=== PATIENT | female | born 1950 | race Caucasian/White ===

== ENCOUNTER 2018-06-07 08:08 | Emergency (ER) | payer OTHER, MEDICARE ==
[~2018-06-07] VITALS: Ht 160 cm; Wt 100.0 kg
[~2018-06-07 08:08] MED LIST: ASPEC81 PO; CZR50 PO; L-LYSINE; MULT-190 PO; MULT-506 PO
[2018-06-07 08:17] VITALS: TEMP 36.6; Ht 160 cm; Wt 100.0 kg
[2018-06-07] MEDS ORDERED: ASPI-461 PO (08:58)
[2018-06-07] MEDS ORDERED: CINN500T PO (09:02)
[2018-06-07] MEDS ORDERED: MAGN1TAB41 PO (09:02)
[2018-06-07] MEDS ORDERED: LOSA50TA6 PO (09:02)
[2018-06-07] MEDS ORDERED: BILB1CAP2 PO (09:02)
[2018-06-07] MEDS ORDERED: POTA1TAB PO (09:02)
[2018-06-07] MEDS ORDERED: GARL10007 PO (09:02)
[2018-06-07] MEDS ORDERED: CALC-393 PO (09:02)
[2018-06-07] MEDS ORDERED: LYSI500T4 PO (09:02)
[2018-06-07] MEDS ORDERED: LEVO75TA PO (09:02)
[2018-06-07] MEDS ORDERED: OMEG5CAP PO (09:02)
[2018-06-07] MEDS ORDERED: TRAM-10 PO (10:40)
--- NOTE | 2018-06-07 10:43 | DIAGNOSTIC IMAGING REPORT ---
LUMBAR SPINE 5 VIEWS CLINICAL HISTORY: Fall with low back pain. FINDINGS: Five views of lumbar spine are obtained. No prior studies are available for comparison at the time of dictation. The skeletal structures are osteopenic. There is no radiographic evidence of fracture or malalignment involving the lumbar spine. Vertebral body height and alignment are maintained. There is mild lumbar dextrocurvature centered at L3. The transverse and spinous processes appear intact. Anterior and lateral marginal osteophytes are seen throughout. Advanced facet arthropathy is seen in the mid to lower lumbar region. There is moderate disc space narrowing seen at all lumbar levels. The visualized sacrum and bony pelvis are intact as imaged. Sclerotic change is noted in the sacroiliac joints and symphysis pubis. No bowel obstruction is identified. There is moderate colonic fecal retention. A bone island is noted in the left acetabulum. IMPRESSION: 1. There is no radiographic evidence of fracture or malalignment involving the lumbar spine. 2. Osteopenia with advanced lumbosacral spondylosis and scoliosis as above. Dictated: 06/07/2018 9:46 AM Transcribed: 06/07/2018 10:43 AM [email or web address] Electronically signed by: Hola Carranza M.D. 06/07/2018 11:11 AM Dictated Date/Time: 06/07/2018 9:46 AM
[2018-06-07 11:50] VITALS: BP 154/87; PULSE 83; O2SAT 97
--- NOTE | 2018-06-10 22:57 | EMERGENCY ROOM VISIT NOTE ---
ED Visit Note First contact with patient: 08:23 Chief Complaint: Back pain. History of Present Illness: Ms. Tucker is a 67-year-old white female who is brought into the ED via ambulance complaining of right sided lumbar back pain. Patient reports that she has had right sided sciatica for over 30 years. She reports last night approximately 10 hours ago her pain started increasing in intensity without any precipitating direct or repetitive trauma. She reports last night she describes her pain as a spasm-like sensation. She rated her discomfort 10/10. Her pain was radiating into the buttocks but not the leg. Her pain worsens with all movement of the lumbar spine. She did not identify any alleviating factors related to the pain. She did take her prescribed tramadol without relief of her discomfort. Since that time her pain has been constant and she really had difficulty sleeping through the night. This morning she activated EMS to be brought into the hospital for further evaluation and care. During transport patient received 100 mcg of fentanyl IV, 1 mg of Ativan IV and 4 mg of Zofran IV for her symptoms. Currently she continues to describe her sensation as a spasm. She now rates her discomfort 2/10. The pain is still radiating into the buttocks but not down the leg. She has not identified any current aggravating or alleviating factors related to the pain. She denies any associated symptoms including recent fevers, chills, sweats, abdominal pain, nausea, vomiting, constipation, rectal bleeding, black/tarry stools, urinary symptoms, hematuria, genital paresthesias, bowel and bladder dysfunction, lower extremity weakness/numbness/ tingling. Review of Systems: As noted above in history of present illness. 8 body systems were reviewed and found to be negative as noted above. Past Medical History: As previously noted and hypertension and hypothyroidism. Current Medications: Medications Dose Route/Sig Max Daily Dose Days Date Category Dose Instructions Ultram (Tramadol HCl) 50 Mg Tab 1 Tab PO Q6 PRN 3 06/07/18 Rx For Initial Treatment Cinnamon 500 Mg Tab 1,000 Mg PO BID 06/07/18 Reported Fish Oil 1200 mg ([place]-3 Fatty Acids) 1 Cap Cap 1,200 Mg PO 3XWK 06/07/18 Reported Calcium (Calcium Carbonate) 600 Mg Tab 600 Mg PO DAILY 06/07/18 Reported Potassium Gluconate 595 Mg Tab 595 Mg PO DAILY 06/07/18 Reported Synthroid (Levothyroxine Sodium) 75 Mcg Tab 75 Mcg PO DAILY 06/07/18 Reported Bilberry (Bilberry (Vaccinium Myrtillus)) 1,000 Mg Cap 1,000 Mg PO BID 06/07/18 Reported Garlic 1,000 Mg Cap 1,000 Mg PO DAILY 06/07/18 Reported Magnesium (Magnesium Oxide) 400 Mg Tab 400 Mg PO 4XWK 06/07/18 Reported L-Lysine (Lysine) 500 Mg Tab 500 Mg PO DAILY 06/07/18 Reported Cozaar (Losartan Potassium) 50 Mg Tab 50 Mg PO DAILY 06/07/18 Reported Aspirin 81 Mg Tab 81 Mg PO DAILY 06/07/18 Reported Ocuvite Preservision (Multivitamins/Minerals) 1 Tab Tab 1 Tab PO DAILY 02/03/08 Reported Multivitamin (Multivitamins) Tab 1 Tab PO DAILY 02/03/08 Reported Allergies to Medications: Penicillin, morphine. Social History: Patient is not employed; she feels safe in her home environment ; she denies tobacco use. Physical Examination: Vital Signs: Date Time Temp Pulse Resp B/P (MAP) Pulse Ox O2 Delivery O2 Flow Rate FiO2 06/07/18 11:50 83 18 154/87 97 06/07/18 11:23 81 18 163/83 98 Room Air 06/07/18 09:23 88 18 159/78 97 Room Air 06/07/18 08:31 93 20 156/83 97 Room Air 06/07/18 08:17 36.6 93 20 212/114 93 Room Air 204/114 GENERAL: 67-year-old female in mild to moderate distress due to pain, nontoxic- appearing, afebrile and hemodynamically stable. NEUROLOGICAL: Awake, alert and oriented to person, place and time. Answering questions appropriately and following commands. Good hand eye coordination. No focal motor sensory deficits. SKIN: Warm, dry and pink. No soft tissue eruptions or trauma noted. HEENT: Atraumatic and normocephalic. BACK: No tenderness over the bony thoracic or lumbar spines. Moderate tenderness over the right sacroiliac joint area without bony deformity, bony crepitus, swelling or ecchymosis. There is also minimal tenderness just lateral to the lumbar spine in the para musculature without spasm. Mild decreased range of motion of the lumbar spine due to pain predominantly in flexion. Negative straight leg raise test. No CVA tenderness. THORAX: Lungs sounds are clear to auscultation and equal bilaterally with symmetrical chest wall. HEART: Regular rate and rhythm. No gallops, rubs or murmurs are appreciated. ABDOMEN: Soft and nontender. Positive bowel sounds in all quadrants. No guarding, rigidity or organomegaly. EXTREMITIES: Moves all extremities well on command and with purpose. All distal neurovascular statuses are intact and equal bilaterally. Lower Extremities: No gross bony deformity. No shortening or malrotation. No tenderness in the hips, knees or ankles. 4/5 muscle strength in all movements of the hips, knees and ankles against resistance. 2+ patellar and Achilles deep tendon reflexes intact and equal bilaterally. No calf tenderness or cords. ED Course: Patient is assessed as noted above. Patient's medication list was reviewed. Lumbar Spine X-Rays: Were read by myself and the radiologist showing no evidence of fracture or malignancy. Radiologist does note osteopenia with advanced lumbar sacral spondylosis and scoliosis. Patient was educated about tonight's findings and instructed on her treatment plan; she verbalized understanding and agreement with this plan. Clinical Impression: Lumbar back pain with right-sided radiculopathy. Disposition: Patient discharged home in stable condition; prior to departure she was reassessed and subjectively reported she was feeling the same from being brought in and rated her overall discomfort 2/10. Plan: She was placed on a sliding pain medication scale of ibuprofen, acetaminophen and Ultram. Other comfort measures including ice and proper lifting and moving techniques were discussed with the patient. Patient was encouraged to follow-up with her PCP for recheck if no better in 3- 4 days. Patient was encouraged return the ED for worsening/uncontrolled pain, fevers, numbness/tingling in the rectal or genital areas, bowel and bladder dysfunction , lower extremity weakness/numbness/tingling or any new/concerning symptoms.
== END 2018-06-07 11:50 | disposition home or self-care (01) ==
LOC: EDBD 08:08 → C.EDA 08:11
DX: M54.41 Lumbago with sciatica, right side (principal); G89.29 Other chronic pain; I10 Essential (primary) hypertension; E03.9 Hypothyroidism, unspecified; Z79.82 Long term (current) use of aspirin; Z79.899 Other long term (current) drug therapy; Z88.0 Allergy status to penicillin; Z88.6 Allergy status to analgesic agent

== ENCOUNTER 2020-05-09 06:15 | Observation (INO) ==
[2020-05-09] MEDS ORDERED: ADENOSINE IV SOLN 3 MG/ML 2 ML VIAL IV ONE (06:36)
[2020-05-09 06:39] LABS: Basophils # (auto) 0.04 K/uL (0-0.2); Basophils % (auto) 0.3 %; Eosinophils # (auto) 0.41 K/uL (0-0.5); Eosinophils % (auto) 2.9 %; Hematocrit (blood only) 46.2 % (37-47); Immature Granulocytes # (auto) 0.11 K/uL (0.00-0.02); Immature Granulocytes % (auto) 0.8 %; Lymphocytes # (auto) 2.28 K/uL (1.2-3.4); Lymphocytes % (auto) 16.3 %; Mean Corpuscular Hemoglobin 29.5 pg (25-34); Mean Corpuscular Hgb Conc 32.5 g/dL (32-36); Mean Corpuscular Volume 90.9 fL (80-100); Mean Platelet Volume 9.6 fL (7.4-10.4); Monocytes # (auto) 1.17 K/uL (0.11-0.59); Monocytes % (auto) 8.4 %; Neutrophils # (auto) 9.98 K/uL (1.4-6.5); Neutrophils % (auto) 71.3 %; Platelet Count 279 K/uL (130-400); RDW Coefficient of Variation 14.9 % (11.5-14.5); RDW Standard Deviation 49.9 fL (36.4-46.3); Red Blood Count 5.08 M/uL (4.2-5.4); White Blood Count 13.99 K/uL (4.8-10.8)
[2020-05-09] MEDS ORDERED: ADENOSINE IV SOLN 3 MG/ML 2 ML VIAL IV STA (06:46)
[2020-05-09 06:56] LABS: Albumin Level 3.1 gm/dl (3.4-5.0); BUN Creatinine Ratio 15.2 (10-20); Blood Urea Nitrogen 13 mg/dl (7-18); Calcium 9.3 mg/dl (8.5-10.1); Carbon Dioxide 24 mmol/L (21-32); Chloride 108 mmol/L (98-107); Creatinine Clr Calc Pharmacy 72.8 ml/min; Est GFR (African American) 81.6; Est GFR (Non-African American) 70.4; Glucose 151 mg/dl (70-99); Magnesium 2.1 mg/dl (1.8-2.4); Potassium 3.7 mmol/L (3.5-5.1); Sodium 139 mmol/L (136-145)
--- NOTE | 2020-05-09 07:02 | Emergency Department Note ---
History of Present Illness General Chief Complaint: Tachycardia Time Seen by Provider: 05/09/20 06:34 History of Present Illness Provider Complaint: + rapid heart beat and + "heart racing" Time: 04:00 Duration: + Constant Severity: severe Maximum Pain Intensity: 3 Current Pain Intensity: 1 Context: + occurred during rest Arrhythmia history: + other (no arrythmia history) Associated symptoms: + chest pain and + diaphoresis; no shortness of breath Home Medications Home Medications Medication Instructions Recorded Confirmed Type C,E,zinc,copper [id number] 1 cap PO QAM 02/25/20 05/09/20 History [Ocuvite Adult 50 Plus] bilberry 100 mg PO BID 02/25/20 05/09/20 History calcium carbonate [Calcium 600] 600 mg PO QDL 02/25/20 05/09/20 History cinnamon bark [Cinnamon] 1,000 mg PO BID 02/25/20 05/09/20 History fish,bora,flax oils-om3,[id number] 1 cap PO TUTHSA 02/25/20 05/09/20 History [[place] 3-6-9] garlic 1,000 mg PO QDL 02/25/20 05/09/20 History levothyroxine 75 mcg PO QAM 02/25/20 05/09/20 History losartan 50 mg PO QAM 02/25/20 05/09/20 History lysine 500 mg PO QAM 02/25/20 05/09/20 History multivitamin 1 tab PO QDL 02/25/20 05/09/20 History potassium gluconate 595 mg PO QAM 02/25/20 05/09/20 History azathioprine 50 mg tablet 100 mg PO DAILY #60 tab 05/06/20 05/09/20 Rx aspirin 325 mg PO QAM 05/09/20 05/09/20 History aspirin 650 mg PO UD 05/09/20 05/09/20 History furosemide 40 mg PO DAILY PRN 05/09/20 05/09/20 History magnesium citrate 100 mg PO BID 05/09/20 05/09/20 History prednisone 10 mg PO Q2D 05/09/20 05/09/20 History Allergies Allergy/AdvReac Type Severity Reaction Status Date / Time Penicillins Allergy Mild RASH Verified 05/09/20 07:18 morphine Allergy Unknown . Verified 05/09/20 07:18 tramadol [From Ultram] Allergy Rash Verified 05/09/20 07:18 Past Med/Surg History Medical History Bullous pemphigoid Hypertension (Acute) Hypothyroidism (Acute) Obesity (Acute) Surgical History History of dilation and curettage History of vaginal hysterectomy Family History Father Myocardial infarction Diabetes Mother Breast cancer Congestive heart failure Social History Preferred Language: Malaysian Communication Ability: Effective marital status: Single Current Living Situation: Alone current occupational status: retired current occupation: Retired teacher Feels Safe at Home: Yes Smoking Status: Never smoker Hx Alcohol Use: No Hx Substance Use: No Review of Systems A total of 10 systems reviewed and were otherwise negative Physical Exam Vital Signs: Vital Signs - 24 hr 05/09/20 06:19 05/09/20 06:45 05/09/20 07:01 Temperature 37 C Temperature Source Oral Pulse Rate 162 H Pulse Rate [Apical ] 108 H 105 H Pulse Rhythm [Apic al] Regular Pulse Strength [Ap ical] Respiratory Rate 25 H 18 18 Respiratory Effort / Characteristics Non-Labored Sponta neous Non-Labored Sponta neous Non-Labored Sponta neous Respiratory Depth Normal Normal Normal Respiratory Patter n Regular Blood Pressure 176/109 H Blood Pressure [Le ft Arm] 162/99 H 162/86 H Blood Pressure Laila n 131 Blood Pressure Laila n [Left Arm] 120 111 Pulse Oximetry 96 97 96 Oxygen Delivery Me thod Room Air Room Air Room Air Sepsis Recent Feve r Within 48 Hours No Sepsis Action Take n by Nursing No Action Required 05/09/20 07:37 05/09/20 09:00 Temperature Temperature Source Pulse Rate Pulse Rate [Apical ] 110 H 112 H Pulse Rhythm [Apic al] Regular Regular Pulse Strength [Ap ical] Normal Respiratory Rate 18 18 Respiratory Effort / Characteristics Non-Labored Sponta neous Non-Labored Sponta neous Respiratory Depth Normal Normal Respiratory Patter n Regular Regular Blood Pressure Blood Pressure [Le ft Arm] 177/77 H 150/102 H Blood Pressure Laila n Blood Pressure Laila n [Left Arm] 110 118 Pulse Oximetry 96 95 Oxygen Delivery Me thod Room Air Room Air Sepsis Recent Feve r Within 48 Hours Sepsis Action Take n by Nursing Physical Exam: Physical Exam GENERAL: She is oriented to person, place, and time. She appears well-developed and well-nourished. She does not appear distressed. HENT: Exam performed. -Head: Normocephalic and atraumatic. -Right Ear: External ear normal. No mastoid tenderness. -Left Ear: External ear normal. No mastoid tenderness. -Mouth/Throat: The oropharynx is clear and moist. No trismus in the jaw. No dental abscesses or uvula swelling. No oropharyngeal exudate or tonsillar abscesses. EYES: Conjunctivae and EOM are normal. Pupils are equal, round, and reactive to light. Right eye exhibits no discharge. Left eye exhibits no discharge. No scleral icterus. NECK: Normal range of motion. Neck supple. No JVD present. No spinous process tenderness present. No carotid bruit present. No rigidity. No tracheal deviation and normal range of motion present. No Brudzinski's sign and no Kernig's sign noted. CV: tachycardic rate, regular rhythm, normal heart sounds and intact distal pulses. There is no peripheral edema. Palpable radial pulses bue. PULM/CHEST: Effort normal and breath sounds normal. No respiratory distress. No stridor. She has no wheezes. She has no rales. -Chest Wall: She exhibits no tenderness. ABD: The abdomen is obese and soft. Bowel sounds are normal. She has no distension. No mass is present. There is no tenderness. There is no rebound, no guarding, no Puentse's sign and no tenderness at McBurney's point. Rovsig negative MUSC/SKEL: Normal range of motion. There is no peripheral edema, tenderness or deformity. LYMPH: No cervical adenopathy. NEURO: She is alert and oriented to person, place, and time. She has normal strength. No cranial nerve deficit or sensory deficit. Coordination and gait normal. GCS eye subscore is 4. GCS verbal subscore is 5. GCS motor subscore is 6. Cerebellar tests wnl. SKIN: Skin is warm and dry. She is not diaphoretic. PSYCH: She has a normal mood and affect. Behavior is normal. Judgment and thought content normal. Course Course 06: The patient was evaluated in room c7. A complete history and physical exam was performed. Patient was placed on child monitor. She seemed to be in SVT with a rate of 160. 6 mg of adenosine was pushed on the patient which ter minated the SVT and revealed a sinus tachycardia. Cardiac monitoring: An order was placed for continuous cardiac monitoring. The monitor shows a rate of 160 with SVT rhythm 0801: Vital signs stable status post adenosine. Patient remains in a sinus tachycardia. Labs show leukocytosis of 13.99, most likely due to her recent prednisone usage. Imaging within normal limits. Patient will be admitted to the hospitalist service given her reported chest pain, diaphoresis, as well as being in a newfound SVT with no history of SVT. It is possible that her SVT could be due to the recent medications that she was put on for her bullous pemphigoid is azathioprine and prednisone. Discussed the case with Dr. Chavez [facility] hospitalist who accepted the patient. Administered Medications Ioversol (Optiray 320 125ml) 119 ml IV ONCE PRN PRN Reason: Interaction Checking Stop: 05/13/20 07:31 Last Admin: 05/09/20 07:33 Dose: 119 ml Documented by: [id number] Discontinued Medications Adenosine (Adenosine) Confirm Administered Dose 18 mg IV .STK-MED ONE Stop: 05/09/20 06:37 Last Admin: 05/09/20 06:48 Dose: Not Given Documented by: [id number] Adenosine (Adenosine) 6 mg IV NOW STA Stop: 05/09/20 06:47 Last Admin: 05/09/20 06:48 Dose: 6 mg Documented by: [id number] Medical Decision Making Laboratory Data Result diagrams: 05/09/20 06:28 05/09/20 06:28 Lab Results 05/09/20 05/09/20 05/09/20 Range/Units 06:28 06:28 06:28 WBC 13.99 H (4.8-10.8) K/uL RBC 5.08 (4.2-5.4) M/uL Hgb 15.0 (12.0-16.0) g/dL Hct 46.2 (37-47) % MCV 90.9 (80-100) fL MCH 29.5 (25-34) pg MCHC 32.5 (32-36) g/dL RDW Std Deviation 49.9 H (36.4-46.3) fL RDW Coeff of Cathy 14.9 H (11.5-14.5) % Plt Count 279 (130-400) K/uL MPV 9.6 (7.4-10.4) fL Immature Gran % (Auto) 0.8 % Neut % (Auto) 71.3 % Lymph % (Auto) 16.3 % Yancey % (Auto) 8.4 % Eos % (Auto) 2.9 % Baso % (Auto) 0.3 % Neut # (Auto) 9.98 H (1.4-6.5) K/uL Lymph # (Auto) 2.28 (1.2-3.4) K/uL Yancey # (Auto) 1.17 H (0.11-0.59) K/uL Eos # (Auto) 0.41 (0-0.5) K/uL Baso # (Auto) 0.04 (0-0.2) K/uL Immature Gran # (Auto) 0.11 H (0.00-0.02) K/uL PT 10.5 (9.0-12.0) Seconds INR 1.0 (0.9-1.1) Sodium 139 (136-145) mmol/L Potassium 3.7 (3.5-5.1) mmol/L Chloride 108 H (98-107) mmol/L Carbon Dioxide 24 (21-32) mmol/L Anion Gap 7.0 (3-11) BUN 13 (7-18) mg/dl Creatinine 0.84 (0.6-1.2) mg/dl Est Cr Clr Drug Dosing 72.8 ml/min Est GFR ( Amer) 81.6 Est GFR (Non-Af Amer) 70.4 BUN/Creatinine Ratio 15.2 (10-20) Glucose 151 H (70-99) mg/dl Calcium 9.3 (8.5-10.1) mg/dl Magnesium 2.1 (1.8-2.4) mg/dl Total Bilirubin 0.6 (0.2-1) mg/dl AST 19 (15-37) U/L ALT 33 (12-78) U/L Alkaline Phosphatase 86 (45-117) U/L Troponin I < 0.015 (0-0.045) ng/ml NT-Pro-B Natriuret Pep 58 (0-900) pg/ml Total Protein 7.0 (6.4-8.2) gm/dl Albumin 3.1 L (3.4-5.0) gm/dl Globulin 3.9 (2.5-4.0) gm/dl Albumin/Globulin Ratio 0.8 L (0.9-2) TSH 2.900 (0.300-4.500) uIu/ml Imaging Data Radiologist's Impression: CT ANGIOGRAM OF THE CHEST CLINICAL HISTORY: Dyspnea. Atypical chest pain. COMPARISON STUDY: Chest x-ray dated 01/25/2008. TECHNIQUE: Following the IV administration of 120 cc of Optiray 320, CT angiogram of the chest was performed from the upper abdomen to the thoracic inlet utilizing the pulmonary embolus protocol. Images are reviewed in the axial, sagittal, and coronal planes. 3-D MIPS images are created and assessed. IV contrast was administered without complication. A dose lowering technique was utilized adhering to the principles of ALARA. The examination is degraded by motion artifact, as well as by streak artifact from the right arm which could not be elevated above the chest. CT DOSE: 921.94 mGy.cm FINDINGS: Thyroid: Imaged portions of the thyroid gland are normal in size and attenuation. Thyroid nodules measure up to 10 mm. Thoracic aorta: The thoracic aorta is normal in caliber and demonstrates standard 3-vessel arch anatomy. No dissection is seen. Pulmonary vasculature: The pulmonary trunk is normal in caliber. There are no filling defects identified in main, lobar, or proximal segmental pulmonary branches to suggest pulmonary embolus. Evaluation of the peripheral branches is degraded by streak and motion artifact. Heart: The heart is top normal in size and without pericardial effusion. Lungs and pleural spaces: Evaluation of the lung parenchyma is degraded by motion artifact. There is no airspace consolidation typical for pneumonia or pleural effusion. The trachea and central airways are clear. There is elevation of the right hemidiaphragm and bibasilar atelectasis. Mediastinum: There is no mediastinal lymphadenopathy. Carolyn: Clear. Axillae: There is no axillary lymphadenopathy. Upper abdomen: There is a small hiatal hernia. The liver appears steatotic. The visualized kidneys demonstrate cortical atrophy. Skeletal structures: The skeletal structures are osteopenic. Advanced degenerative change is seen in the right shoulder with numerous calcified joint bodies and bursal fluid. Milder arthritic change is seen in the left shoulder. N o lytic or blastic bony lesions are seen. IMPRESSION: 1. Motion degraded examination. 2. There is no evidence of central pulmonary embolus in the main, lobar, or proximal segmental pulmonary arteries. 3. There is no airspace consolidation or pleural effusion. 4. Additional findings as above. ACT 112: Negative or not required by law. Electronically signed by: Hola Carranza M.D. 05/09/2020 7:45 AM Dictated: 05/09/20735 Transcribed: 05/09/20735 ECG Data Indication: palpitations Rate (beats per minute): 161 Rhythm: SVT Findings: no ST depression, no T-wave inversion, no ST elevation and no ectopy Additional Comments: EKG #1 at 619: SVT with rate of 161. QRS and QTc intervals within normal limits. No ST elevation or ST depression. EKG #2 at 641 status post adenosine: Sinus tachycardia with rate of 117. MT QRS and QTc intervals within normal limits. No ST elevation or ST depression. MDM Narrative 0630: The patient was evaluated in room c7. A complete history and physical exam was performed. Patient was placed on child monitor. She seemed to be in SVT with a rate of 160. 6 mg of adenosine was pushed on the patient which terminated the SVT and revealed a sinus tachycardia. Cardiac monitoring: An order was placed for continuous cardiac monitoring. The monitor shows a rate of 160 with SVT rhythm 0801: Vital signs stable status post adenosine. Patient remains in a sinus tachycardia. Labs show leukocytosis of 13.99, most likely due to her recent prednisone usage. Imaging within normal limits. Patient will be admitted to the hospitalist service given her reported chest pain, diaphoresis, as well as being in a newfound SVT with no history of SVT. It is possible that her SVT could be due to the recent medications that she was put on for her bullous pemphigoid is azathioprine and prednisone. Discussed the case with Dr. Chavez [facility] hospitalist who accepted the patient. Impression & Plan SVT (supraventricular tachycardia) Critical Care Time Critical Care Time: Yes Total Critical Care Time: 36 I have personally spent greater than 36 minutes of critical care time in the direct management of this patient. This includes bedside care, interpretation of diagnostic studies, and testing, discussion with consultants, patient, and family members, and other required patient management activities. This 36 minutes is in excess of all separately billable procedures. Discharge Plan Visit Data Chief Complaint: Tachycardia ED Provider: Helio Estrella Discharge Problem: SVT (supraventricular tachycardia) Patient Disposition: Being Evaluated by Hospitalist Forms Stand Alone Forms: My [facility] Prescriptions Prescriptions: No Action azathioprine 50 mg tablet 100 mg PO DAILY Qty: 60 RF: 1 multivitamin Tablet 1 tab PO QDL RF: 0 losartan 50 mg tablet 50 mg PO QAM RF: 0 levothyroxine 75 mcg tablet 75 mcg PO QAM RF: 0 garlic 1,000 mg Capsule 1,000 mg PO QDL RF: 0 calcium carbonate [Calcium 600] 600 mg calcium (1,500 mg) Tablet 600 mg PO QDL RF: 0 bilberry 100 mg Capsule 100 mg PO BID RF: 0 lysine 500 mg Tablet 500 mg PO QAM RF: 0 cinnamon bark [Cinnamon] 500 mg Capsule 1,000 mg PO BID RF: 0 potassium gluconate 595 mg (99 mg) Tablet 595 mg PO QAM RF: 0 Ocuvite Adult 50 Plus 250-5-1 mg Capsule 1 cap PO QAM RF: 0 [place] 3-6-9 1,200 mg Capsule 1 cap PO TUTHSA RF: 0 aspirin 325 mg Tablet 650 mg PO UD RF: 0 aspirin 325 mg Tablet 325 mg PO QAM RF: 0 magnesium citrate 100 mg Tablet 100 mg PO BID RF: 0 prednisone 10 mg tablet 10 mg PO Q2D RF: 0 furosemide 40 mg tablet 40 mg PO DAILY PRN (Reason: Edema) RF: 0 Referrals Referrals: Juan Jose Erazo MD [Primary Care Provider] -
[2020-05-09 07:06] LABS: Alanine Aminotransferase 33 U/L (12-78); Albumin Globulin Ratio 0.8 (0.9-2); Alkaline Phosphatase 86 U/L (45-117); Aspartate Aminotransferase 19 U/L (15-37); Bilirubin,Total 0.6 mg/dl (0.2-1); Globulin 3.9 gm/dl (2.5-4.0); NT Pro B Type Natriuretic Pept 58 pg/ml (0-900); Troponin I < 0.015 ng/ml (0-0.045)
[2020-05-09 07:15] LABS: Prothrombin Time 10.5 Seconds (9.0-12.0)
[2020-05-09] MEDS ORDERED: OPTIRAY 320 125ml IV PRN (07:32)
--- NOTE | 2020-05-09 07:46 | CT Scan Report ---
CT ANGIOGRAM OF THE CHEST CLINICAL HISTORY: Dyspnea. Atypical chest pain. COMPARISON STUDY: Chest x-ray dated 01/25/2008. TECHNIQUE: Following the IV administration of 120 cc of Optiray 320, CT angiogram of the chest was pe rformed from the upper abdomen to the thoracic inlet utilizing the pulmonary embolus protocol. Images are reviewed in the axial, sagittal, and coronal planes. 3-D MIPS images are created and assessed. I V contrast was administered without complication. A dose lowering technique was utilized adhering to the principles of ALARA. The examination is degraded by motion artifact, as well as by streak artifa ct from the right arm which could not be elevated above the chest. CT DOSE: 921.94 mGy.cm FINDINGS: Thyroid: Imaged portions of the thyroid gland are normal in size and attenuation. Thyroid nodules taran sure up to 10 mm. Thoracic aorta: The thoracic aorta is normal in caliber and demonstrates standard 3-vessel arch anato my. No dissection is seen. Pulmonary vasculature: The pulmonary trunk is normal in caliber. There are no filling defects identif ied in main, lobar, or proximal segmental pulmonary branches to suggest pulmonary embolus. Evaluation of the peripheral branches is degraded by streak and motion artifact. Heart: The heart is top normal in size and without pericardial effusion. Lungs and pleural spaces: Evaluation of the lung parenchyma is degraded by motion artifact. There is no airspace consolidation typical for pneumonia or pleural effusion. The trachea and central airways are clear. There is elevation of the right hemidiaphragm and bibasilar atelectasis. Mediastinum: There is no mediastinal lymphadenopathy. Carolyn: Clear. Axillae: There is no axillary lymphadenopathy. Upper abdomen: There is a small hiatal hernia. The liver appears steatotic. The visualized kidneys de monstrate cortical atrophy. Skeletal structures: The skeletal structures are osteopenic. Advanced degenerative change is seen in the right shoulder with numerous calcified joint bodies and bursal fluid. Milder arthritic change is seen in the left shoulder. No lytic or blastic bony lesions are seen. IMPRESSION: 1. Motion degraded examination. 2. There is no evidence of central pulmonary embolus in the main, lobar, or proximal segmental pulmon antoinette arteries. 3. There is no airspace consolidation or pleural effusion. 4. Additional findings as above. ACT 112: Negative or not required by law. Electronically signed by: Hola Carranza M.D. 05/09/2020 7:45 AM
--- NOTE | 2020-05-09 08:27 | Electrocardiogram Report ---
Test Reason : Blood Pressure : / mmHG Vent. Rate : 117 BPM Atrial Rate : 117 BPM P-R Int : 166 ms QRS Dur : 092 ms QT Int : 320 ms P-R-T Axes : 040 008 040 degrees QTc Int : 446 ms Sinus tachycardia Left atrial enlargement Diffuse Minor Nonspecific ST abnormality Abnormal ECG When compared with ECG of 09-MAY-2020 06:19, No significant change was found Confirmed by Panchito Andrea ([id number]) on 05/09/2020 8:27:04 AM Referred By: REFERRED SELF Confirmed By:Panchito Andrea
--- NOTE | 2020-05-09 09:58 | History & Physical Report ---
Date of Service May 09, 2020 Assessment & Plan (1) SVT (supraventricular tachycardia): Presented with SVT in the 160s and received adenosine 6 mg which converted her sinus tachycardia Had mild chest pain associated with it which resolved when the SVT resolved. Troponin negative and with nonspecific ST/T wave changes on ECG May be related to recent chronic prednisone use in the last few months She remains in a sinus tachycardia and is hypertensive, with peripheral edema, but no evidence of pulmonary edema or CHF on chest imaging CT angiogram of the chest negative for PE -Admit on observation to PCU for telemetry monitoring -Check echocardiogram -Serial troponin given the chest pain -She is weaning down off of prednisone already with dermatology-we will continue this process which hopefully will help her overall condition -Doubt that azathioprine nor any of her other supplements that she is taking is causing SVT -Start metoprolol tartrate 25 mg p.o. twice daily -We will give potassium 40 mEq to keep potassium greater than 4.0, magnesium is already replete at 2.0 -Follow BMP -Cardiology consultation requested -Daily ECGs (2) Obesity: BMI 41.6 -Likely exacerbated by prednisone use -Check hemoglobin A1c in the morning given chronic prednisone use -Needs weight loss (3) Hypothyroidism: TSH here is normal -Continue home levothyroxine dose (4) Hypertension: Blood pressures are quite elevated here -She did not take her morning losartan-we will give this now -Start metoprolol 25 mg p.o. twice daily as above which also improved blood pressure control -We will follow BPs (5) Bullous pemphigoid: Continue home azathioprine 100 mg daily and prednisone 10 mg every other day -Follows with dermatology as an outpatient (6) Leukocytosis: WBC count is 13 which is likely secondary to prednisone use but could be stress response -Follow CBC (7) DVT prophylaxis: Lovenox SQ Disposition-admit on observation to PCU History of Present Illness Chief Complaint: Heart palpitations Primary Care Provider: Juan Jose Erazo MD This patient is a 69-year-old female with a history of bullous pemphigoid, HTN, hypothyroidism, and obesity, who presents to the ER by ambulance after she woke up at 4:00 this morning and began having rapid heartbeat with heart palpitations and mild chest pain along with diaphoresis. She was found to have an SVT with a rate of 160 bpm. She was given a dose of adenosine 6 mg IV and converted to sinus tachycardia. A CT angiogram of the chest was negative for PE or pneumonia. Her troponin was negative. ECG after after conversion to sinus rhythm showed sinus tachycardia with a rate of 117, diffuse minor nonspecific ST abnormality with otherwise normal axis and intervals. TSH was normal and electrolytes were normal.. She reports she has been on chronic daily prednisone since January for new diagnosis of bullous pemphigoid. She was then recently started on azathioprine about 3 weeks ago and has been tapering off of her prednisone. She has been having leg swelling and weight gain along with the prednisone. She has never before had any history of SVT or any cardiac issues. She has never had syncope or presyncope. She does have a family history of an MT in her father who at age 54, mother with CHF who in her 90s, and a sister who has some sort of congenital heart valve disease. She will be admitted for observation for SVT for further work-up. Allergies Allergy/AdvReac Type Severity Reaction Status Date / Time Penicillins Allergy Mild RASH Verified 05/09/20 07:18 morphine Allergy Unknown . Verified 05/09/20 07:18 tramadol [From Ultram] Allergy Rash Verified 05/09/20 07:18 Home Medications Home Medications Medication Instructions Recorded Confirmed Type C,E,zinc,copper [id number] 1 cap PO QAM 02/25/20 05/09/20 History [Ocuvite Adult 50 Plus] bilberry 100 mg PO BID 02/25/20 05/09/20 History calcium carbonate [Calcium 600] 600 mg PO QDL 02/25/20 05/09/20 History cinnamon bark [Cinnamon] 1,000 mg PO BID 02/25/20 05/09/20 History fish,bora,flax oils-om3,6,9no1 1 cap PO TUTHSA 02/25/20 05/09/20 History [[place] 3-6-9] garlic 1,000 mg PO QDL 02/25/20 05/09/20 History levothyroxine 75 mcg PO QAM 02/25/20 05/09/20 History losartan 50 mg PO QAM 02/25/20 05/09/20 History lysine 500 mg PO QAM 02/25/20 05/09/20 History multivitamin 1 tab PO QDL 02/25/20 05/09/20 History potassium gluconate 595 mg PO QAM 02/25/20 05/09/20 History azathioprine 50 mg tablet 100 mg PO DAILY #60 tab 05/06/20 05/09/20 Rx aspirin 325 mg PO QAM 05/09/20 05/09/20 History aspirin 650 mg PO UD 05/09/20 05/09/20 History furosemide 40 mg PO DAILY PRN 05/09/20 05/09/20 History magnesium citrate 100 mg PO BID 05/09/20 05/09/20 History prednisone 10 mg PO Q2D 05/09/20 05/09/20 History Past Med/Surg History Medical History Bullous pemphigoid Hypertension (Acute) Hypothyroidism (Acute) Obesity (Acute) Surgical History History of dilation and curettage History of vaginal hysterectomy Family History Father Myocardial infarction Diabetes Mother Breast cancer Congestive heart failure Social History Preferred Language: Panamanian Communication Ability: Effective marital status: Single Current Living Situation: Alone current occupational status: retired current occupation: Retired teacher Feels Safe at Home: Yes Smoking Status: Never smoker Hx Alcohol Use: No Hx Substance Use: No Review of Systems Review of Systems: All systems reviewed & are unremarkable except as noted in HPI & below Has a mild headache currently. No recent fevers or chills. No cough or cold symptoms, no shortness of breath. Had mild chest pain with the SVT but is now improved. Denies any nausea or vomiting, no diarrhea. No abdominal pain. No urinary symptoms. Does have some leg swelling since being on prednisone and has taken Lasix 2 times total. Does have a skin rash with bullous pemphigoid which is itchy but is improving since being on azathioprine. Has been staying isolated at home except to go to the chiropractor once a week for chronic lower back pain. No COVID contacts or exposures that are known. Physical Exam Constitutional: WD/WN, vitals as above + obese Eyes: PERRL, conjunctivae normal, anicteric sclerae ENMT: external ear and nose normal, oropharynx normal Neck: trachea midline, no thyromegaly Respiratory: normal respiratory effort, lungs clear to auscultation Cardiovascular: Rate/Rhythm: regular rhythm and + tachycardic Heart Sounds: no murmur Extremities: + edema (2+ pitting edema of the ankles to the mid tibia bilaterally) Chest (Breasts): Chest: normal inspection of chest Gastrointestinal (Abdomen): normal bowel sounds, soft, nontender, no hepatosp lenomegaly Musculoskeletal: Extremities: extremities normal to inspection; no cyanosis and no clubbing Skin: + rash (Multiple areas of macular erythematous lesions with scaling skin on extremities and back) Neurologic: moves all extremities and awake; no focal motor deficits Psychiatric: A+Ox3, euthymic affect Lymphatic: no lymphedema Results & Data Results & Data ([facility]) Vital Signs (Past 12 Hours) Vital Signs Temp Pulse Pulse Resp BP BP Pulse Ox 05/09/20 09:00 112 H 18 150/102 H 95 05/09/20 07:37 110 H 18 177/77 H 96 05/09/20 07:01 105 H 18 162/86 H 96 05/09/20 06:45 108 H 18 162/99 H 97 05/09/20 06:19 37 C 162 H 25 H 176/109 H 96 Laboratory Results 05/09/20 05/09/20 05/09/20 Range/Units 06:28 06:28 06:28 WBC 13.99 H (4.8-10.8) K/uL RBC 5.08 (4.2-5.4) M/uL Hgb 15.0 (12.0-16.0) g/dL Hct 46.2 (37-47) % MCV 90.9 (80-100) fL MCH 29.5 (25-34) pg MCHC 32.5 (32-36) g/dL RDW Std Deviation 49.9 H (36.4-46.3) fL RDW Coeff of Cathy 14.9 H (11.5-14.5) % Plt Count 279 (130-400) K/uL MPV 9.6 (7.4-10.4) fL Immature Gran % (Auto) 0.8 % Neut % (Auto) 71.3 % Lymph % (Auto) 16.3 % Mccracken % (Auto) 8.4 % Eos % (Auto) 2.9 % Baso % (Auto) 0.3 % Neut # (Auto) 9.98 H (1.4-6.5) K/uL Lymph # (Auto) 2.28 (1.2-3.4) K/uL Mccracken # (Auto) 1.17 H (0.11-0.59) K/uL Eos # (Auto) 0.41 (0-0.5) K/uL Baso # (Auto) 0.04 (0-0.2) K/uL Immature Gran # (Auto) 0.11 H (0.00-0.02) K/uL PT 10.5 (9.0-12.0) Seconds INR 1.0 (0.9-1.1) Sodium 139 (136-145) mmol/L Potassium 3.7 (3.5-5.1) mmol/L Chloride 108 H (98-107) mmol/L Carbon Dioxide 24 (21-32) mmol/L Anion Gap 7.0 (3-11) BUN 13 (7-18) mg/dl Creatinine 0.84 (0.6-1.2) mg/dl Est Cr Clr Drug Dosing 72.8 ml/min Est GFR ( Amer) 81.6 Est GFR (Non-Af Amer) 70.4 BUN/Creatinine Ratio 15.2 (10-20) Glucose 151 H (70-99) mg/dl Calcium 9.3 (8.5-10.1) mg/dl Magnesium 2.1 (1.8-2.4) mg/dl Total Bilirubin 0.6 (0.2-1) mg/dl AST 19 (15-37) U/L ALT 33 (12-78) U/L Alkaline Phosphatase 86 (45-117) U/L Troponin I < 0.015 (0-0.045) ng/ml NT-Pro-B Natriuret Pep 58 (0-900) pg/ml Total Protein 7.0 (6.4-8.2) gm/dl Albumin 3.1 L (3.4-5.0) gm/dl Globulin 3.9 (2.5-4.0) gm/dl Albumin/Globulin Ratio 0.8 L (0.9-2) TSH 2.900 (0.300-4.500) uIu/ml Diagnostic Findings CT ANGIOGRAM OF THE CHEST CLINICAL HISTORY: Dyspnea. Atypical chest pain. COMPARISON STUDY: Chest x-ray dated 01/25/2008. TECHNIQUE: Following the IV administration of 120 cc of Optiray 320, CT angiogram of the chest was performed from the upper abdomen to the thoracic inlet utilizing the pulmonary embolus protocol. Images are reviewed in the axial, sagittal, and coronal planes. 3-D MIPS images are created and assessed. IV contrast was administered without complication. A dose lowering technique was utilized adhering to the principles of ALARA. The examination is degraded by motion artifact, as well as by streak artifact from the right arm which could not be elevated above the chest. CT DOSE: 921.94 mGy.cm FINDINGS: Thyroid: Imaged portions of the thyroid gland are normal in size and atte nuation. Thyroid nodules measure up to 10 mm. Thoracic aorta: The thoracic aorta is normal in caliber and demonstrates standard 3-vessel arch anatomy. No dissection is seen. Pulmonary vasculature: The pulmonary trunk is normal in caliber. There are no filling defects identified in main, lobar, or proximal segmental pulmonary branches to suggest pulmonary embolus. Evaluation of the peripheral branches is degraded by streak and motion artifact. Heart: The heart is top normal in size and without pericardial effusion. Lungs and pleural spaces: Evaluation of the lung parenchyma is degraded by m otion artifact. There is no airspace consolidation typical for pneumonia or pleural effusion. The trachea and central airways are clear. There is elevation of the right hemidiaphragm and bibasilar atelectasis. Mediastinum: There is no mediastinal lymphadenopathy. Carolyn: Clear. Axillae: There is no axillary lymphadenopathy. Upper abdomen: There is a small hiatal hernia. The liver appears steatotic. The visualized kidneys demonstrate cortical atrophy. Skeletal structures: The skeletal structures are osteopenic. Advanced degenerative change is seen in the right shoulder with numerous calcified joint bodies and bursal fluid. Milder arthritic change is seen in the left shoulder. No lytic or blastic bony lesions are seen. IMPRESSION: 1. Motion degraded examination. 2. There is no evidence of central pulmonary embolus in the main, lobar, or proximal segmental pulmonary arteries. 3. There is no airspace consolidation or pleural effusion. 4. Additional findings as above. ECG Additional Comments: ECG with sinus tachycardia with rate 116, diffuse nonspecific ST/T wave changes Code Status & VTE Plan Code Status Full code VTE Prophylaxis Plan VTE Prophylaxis will be ordered: Yes PG Care Time/CCT Total # of Minutes Spent Total Time Spent with Patient: Total time spent is greater than 50% in coordination of care (as documented) at patient's floor/unit and/or counseling patient: Coding Level of Care Code 03380 OBS Care - Level 3 Diagnoses SVT (supraventricular tachycardia) I47.1 Obesity E66.9 Hypothyroidism E03.9 Hypertension I10 Bullous pemphigoid L12.0 Leukocytosis D72.829 DVT prophylaxis Z29.9
[2020-05-09] MEDS ORDERED: METOPROLOL TARTRATE 25 MG TAB PO SCH (10:00)
[2020-05-09] MEDS ORDERED: POTASSIUM CHLORIDE 20 MEQ TABCR PO STA (10:03)
[2020-05-09] MEDS: LOSARTAN POTASSIUM 50 MG TAB PO SCH (10:34)
--- NOTE | 2020-05-09 11:20 | XCELERA ---
[id number]
[2020-05-09] MEDS ORDERED: POLYETHYLENE (MIRALAX) 17 GM PACK PO PRN (16:16)
[2020-05-09] MEDS ORDERED: ACETAMINOPHEN 325 MG TAB PO PRN (16:16)
[2020-05-09] MEDS ORDERED: ONDANSETRON INJ 2 MG/ML 2 ML VIAL IV PRN (16:16)
--- NOTE | 2020-05-09 17:26 | Cardiology Consultation ---
Date of Consultation May 09, 2020 Assessment & Plan (1) SVT (supraventricular tachycardia): Patient with new onset SVT of uncertain etiology. No evidence of pulmonary embolism, electrolyte abnormalities, myocardial ischemia, or other major pathology as a precipitating factor. Certainly, her recent use of prednisone with associated hypervolemia could play a role. (she did require a few doses of furosemide sometime in the past few weeks for leg edema). Fortunately, she is shifting to azathioprine for her bullous pemphigoid and should be less prednisone dependent as time goes on. Agree with beta-kalus as mainstay of treatment, will increase metoprolol dose to 50 mg twice daily given her body habitus and apparent tendency to tachycardia (sinus tachycardia persisted for a while after her SVT). Monitor overnight while titrating beta-klaus and to ensure no recurrent SVT. (2) Chest discomfort: Troponin was negative but the patient did have transient chest discomfort and some persistent ST changes on post conversion ECG. Although this may simply reflect a high demand on normal coronary arteries, it does raise the possibility of obstructive coronary disease. Agree with serial troponins and follow-up ECG. Would also recommend stress study to further risk stratify, this could be performed as an outpatient after titration of beta-klaus is complete. (3) Hypertension: Continue to monitor blood pressure as beta-klaus is titrated. Fortunately, she had only borderline LVH, suggesting that her hypertension has been reasonably controlled overall. She may benefit from a low-dose diuretic (such as Dyazide) if she has persistent hypertension, particularly if she does require ongoing steroid use. (4) Hypothyroidism: TSH was normal. (5) Bullous pemphigoid: As noted, fortunately she is shifting from prednisone to azathioprine. History of Present Illness Reason for Consultation: SVT Requesting Physician: Cindy Chavez MD Attending Physician: Cindy Chavez MD History of Present Illness 69-year-old woman with a history of hypertension and hypothyroidism, no prior cardiac history, who was recently diagnosed with bullous pemphigoid for which she has been on prednisone, admitted through the emergency department when she awoke with palpitations and transient chest pressure and was found to have an SVT at a rate of 160 bpm. She was given adenosine with prompt conversion of the SVT to mild sinus tachycardia, then sinus rhythm. CT of the chest was negative for pulmonary embolism. Electrolytes were normal. At the time of my evaluation late this afternoon, she was comfortable and had no complaints. She denied any chest pain, dyspnea, lightheadedness, or subjective palpitations. Allergies Allergy/AdvReac Type Severity Reaction Status Date / Time Penicillins Allergy Mild RASH Verified 05/09/20 07:18 morphine Allergy Unknown . Verified 05/09/20 07:18 tramadol [From Ultra] Allergy Rash Verified 05/09/20 07:18 Home Medications Home Medications Medication Instructions Recorded Confirmed Type C,E,zinc,copper [id number] 1 cap PO QAM 02/25/20 05/09/20 History [Ocuvite Adult 50 Plus] bilberry 100 mg PO BID 02/25/20 05/09/20 History calcium carbonate [Calcium 600] 600 mg PO QDL 02/25/20 05/09/20 History cinnamon bark [Cinnamon] 1,000 mg PO BID 02/25/20 05/09/20 History fish,bora,flax oils-om3,6,9no1 1 cap PO TUTHSA 02/25/20 05/09/20 History [[place] 3-6-9] garlic 1,000 mg PO QDL 02/25/20 05/09/20 History levothyroxine 75 mcg PO QAM 02/25/20 05/09/20 History losartan 50 mg PO QAM 02/25/20 05/09/20 History lysine 500 mg PO QAM 02/25/20 05/09/20 History multivitamin 1 tab PO QDL 02/25/20 05/09/20 History potassium gluconate 595 mg PO QAM 02/25/20 05/09/20 History azathioprine 50 mg tablet 100 mg PO DAILY #60 tab 05/06/20 05/09/20 Rx aspirin 325 mg PO QAM 05/09/20 05/09/20 History aspirin 650 mg PO UD 05/09/20 05/09/20 History furosemide 40 mg PO DAILY PRN 05/09/20 05/09/20 History magnesium citrate 100 mg PO BID 05/09/20 05/09/20 History prednisone 10 mg PO Q2D 05/09/20 05/09/20 History Patient History Medical History Bullous pemphigoid Hypertension (Acute) Hypothyroidism (Acute) Obesity (Acute) Surgical History History of dilation and curettage History of vaginal hysterectomy Family History Diabetes Father Congestive heart failure Mother Myocardial infarction Father Breast cancer Mother Social History Preferred Language: Lao Communication Ability: Effective Bearing Inspector Required: No Beliefs That Will Affect Care: None marital status: Single Current Living Situation: Alone current occupational status: retired current occupation: Retired teacher Feels Safe at Home: Yes Smoking Status: Never smoker Second Hand Exposure: No ; Hx Alcohol Use: No Hx Substance Use: No Review of Systems Constitutional: no fever, no chills and no fatigue Eyes: no problem reported Ear, Nose, Mouth, Throat: no problem reported Respiratory: no cough, no dyspnea and no dyspnea on exertion Cardiovascular: as per Subjective / HPI and + edema; no chest pain, no orthopnea and no syncope Gastrointestinal: no problem reported Genitourinary: no problem reported Musculoskeletal: no joint pain and no muscle weakness Integumentary: + new lesions Neurologic: no localized weakness and no behavioral changes Psychiatric: no depression Hematologic / Lymphatic: no easy bleeding and no easy bruising Physical Exam Physical Exam: Obese elderly white female appeared comfortable. Afebrile. Mild to moderate hypertension. Initially mildly tachycardic, current pulse in the 70s and regular. Normal respiratory rate. Skin: Some healing erythematous lesions on the trunk and forearms. No obvious bullae. HEENT: Unremarkable. Neck: Jugular venous pulse minimally elevated above the clavicle, no carotid bruits. Lungs: Clear and equal breath sounds bilaterally. Cardiac: Regular rhythm with normal S1 and S2, no murmur, rub, or gallop. Abdomen: Soft nontender. Extremities: Trace to 1+ mostly nonpitting pretibial edema. Extremities warm. Intact peripheral pulses. Neurologic: Normal affect and conversation, nonfocal. Results & Data ([facility]) Diagnostic Findings ECG post adenosine conversion of her SVT showed sinus tachycardia at 117 bpm with diffuse minor ST depression (0.5 mm upsloping in the anterolateral leads). An echocardiogram today showed normal left ventricular size and systolic function (EF 65 to 70%) with normal wall motion. There was borderline LVH with grade 1 diastolic dysfunction and no significant valvular disease. Chest CT showed no pulmonary embolism or other significant pathology. White blood count was minimally elevated (13.99) with normal hemoglobin and platelet count. Normal electrolytes with creatinine of 0.84. Initial troponin was negative and NT proBNP was normal. PG Care Time/CCT Total # of Minutes Spent Total Time Spent with Patient: Total time spent is greater than 50% in coordination of care (as documented) at patient's floor/unit and/or counseling patient: Coding Level of Care Code 93119 Inpt Consult Level 4 Diagnoses SVT (supraventricular tachycardia) I47.1 Chest discomfort R07.89 Hypertension I10 Hypothyroidism E03.9 Bullous pemphigoid L12.0
[2020-05-09] MEDS: azaTHIOprine 50 MG TAB PO SCH (19:48)
[2020-05-09] MEDS: METOPROLOL TARTRATE 50 MG TAB PO SCH (19:48)
[2020-05-09] MEDS: MULTIVITAMIN TAB PO SCH (19:48)
[2020-05-09] MEDS ORDERED: NON-FORMULARY MEDICATION (Magnesium Citrate 100 MG) PO SCH (21:00)
[2020-05-09] MEDS ORDERED: ENOXAPARIN INJ 40 MG/0.4 ML SYR SQ SCH (21:00)
[2020-05-10 06:15] LABS: Basophils # (auto) 0.02 K/uL (0-0.2); Basophils % (auto) 0.1 %; Eosinophils # (auto) 0.28 K/uL (0-0.5); Eosinophils % (auto) 1.9 %; Hematocrit (blood only) 42.3 % (37-47); Hemoglobin 13.7 g/dL (12.0-16.0); Immature Granulocytes # (auto) 0.05 K/uL (0.00-0.02); Immature Granulocytes % (auto) 0.3 %; Lymphocytes # (auto) 1.61 K/uL (1.2-3.4); Lymphocytes % (auto) 10.8 %; Mean Corpuscular Hemoglobin 29.5 pg (25-34); Mean Corpuscular Hgb Conc 32.4 g/dL (32-36); Mean Platelet Volume 9.4 fL (7.4-10.4); Monocytes # (auto) 1.14 K/uL (0.11-0.59); Monocytes % (auto) 7.7 %; Neutrophils # (auto) 11.79 K/uL (1.4-6.5); Neutrophils % (auto) 79.2 %; Platelet Count 276 K/uL (130-400); RDW Coefficient of Variation 15.2 % (11.5-14.5); RDW Standard Deviation 50.5 fL (36.4-46.3); Red Blood Count 4.65 M/uL (4.2-5.4); White Blood Count 14.89 K/uL (4.8-10.8)
[2020-05-10] MEDS ORDERED: LEVOTHYROXINE SODIUM 75 MCG TABLET PO SCH (06:30)
[2020-05-10 06:57] LABS: BUN Creatinine Ratio 19.7 (10-20); Blood Urea Nitrogen 17 mg/dl (7-18); Carbon Dioxide 26 mmol/L (21-32); Chloride 110 mmol/L (98-107); Creatinine Clr Calc Pharmacy 76.9 ml/min; Est GFR (African American) 81.6; Est GFR (Non-African American) 70.4; Glucose 126 mg/dl (70-99); Magnesium 2.2 mg/dl (1.8-2.4); Potassium 4.3 mmol/L (3.5-5.1); Sodium 139 mmol/L (136-145)
[2020-05-10 06:59] LABS: Troponin I < 0.015 ng/ml (0-0.045)
[2020-05-10] MEDS: azaTHIOprine 50 MG TAB PO SCH (08:37)
[2020-05-10] MEDS: METOPROLOL TARTRATE 50 MG TAB PO SCH (08:37)
[2020-05-10] MEDS: LOSARTAN POTASSIUM 50 MG TAB PO SCH (08:38)
[2020-05-10 08:52] LABS: Estimated Average Glucose 166 mg/dl; Hemoglobin A1C 7.4 % (4.5-5.6)
[2020-05-10] MEDS ORDERED: ASPIRIN 325 MG ECTAB PO SCH (09:00)
[2020-05-10] MEDS ORDERED: predniSONE 10 MG TABLET PO SCH (09:00)
[2020-05-10] MEDS ORDERED: GLUCOSE 40% GEL 15 GM TUBE PO PRN (10:04)
[2020-05-10] MEDS ORDERED: DEXTROSE 50% 50 ML SYRINGE IV PRN (10:04)
[2020-05-10] MEDS ORDERED: GLUCOSE 10 TABS/TUBE PO PRN (10:04)
[2020-05-10] MEDS ORDERED: GLUCAGON FOR INJ 1 MG VIAL SQ PRN (10:04)
[2020-05-10] MEDS ORDERED: CARBOHYDRATES FOR HYPOGLYCEMIA PO PRN (10:04)
[2020-05-10] MEDS ORDERED: INSULIN ASPART 100 UNITS/ML 3 ML PEN SC SCH (11:30)
[2020-05-10] MEDS: MULTIVITAMIN TAB PO SCH (11:49)
--- NOTE | 2020-05-10 12:03 | Electrocardiogram Report ---
Test Reason : Blood Pressure : / mmHG Vent. Rate : 086 BPM Atrial Rate : 086 BPM P-R Int : 164 ms QRS Dur : 098 ms QT Int : 378 ms P-R-T Axes : 033 002 019 degrees QTc Int : 452 ms Normal sinus rhythm Minimal voltage criteria for LVH, may be normal variant ( Miguel product ) Borderline ECG When compared with ECG of 09-MAY-2020 06:41, Nonspecific ST abnormality no longer present Confirmed by Panchito Andrea ([id number]) on 05/10/2020 12:02:31 PM Referred By: REFERRED SELF Confirmed By:Panchito Andrea
--- NOTE | 2020-05-10 12:40 | Discharge Summary ---
Date of Service May 10, 2020 Admission HPI Per Admitting Provider This patient is a 69-year-old female with a history of bullous pemphigoid, HTN, hypothyroidism, and obesity, who presents to the ER by ambulance after she woke up at 4:00 this morning and began having rapid heartbeat with heart palpitations and mild chest pain along with diaphoresis. She was found to have an SVT with a rate of 160 bpm. She was given a dose of adenosine 6 mg IV and converted to sinus tachycardia. A CT angiogram of the chest was negative for PE or pneumonia. Her troponin was negative. ECG after after conversion to sinus rhythm showed sinus tachycardia with a rate of 117, diffuse minor nonspecific ST abnormality with otherwise normal axis and intervals. TSH was normal and electrolytes were normal.. She reports she has been on chronic daily prednisone since January for new diagnosis of bullous pemphigoid. She was then recently started on azathioprine about 3 weeks ago and has been tapering off of her prednisone. She has been having leg swelling and weight gain along with the prednisone. She has never before had any history of SVT or any cardiac issues. She has never had syncope or presyncope. She does have a family history of an [place] in her father who at age 54, mother with CHF who in her 90s, and a sister who has some sort of congenital heart valve disease. She will be admitted for observation for SVT for further work-up. Principal Diagnosis SVT Discharge Exam Constitutional WD/WN, vitals as above + obese Eyes + anicteric sclerae Neck trachea midline, no thyromegaly Respiratory normal respiratory effort, lungs clear to auscultation Cardiovascular Rate/Rhythm: regular rate and regular rhythm Heart Sounds: no murmur Extremities: + edema (2+ pitting edema of the ankles to the mid tibia bilaterally) Chest (Breasts) Chest: normal inspection of chest Gastrointestinal (Abdomen) normal bowel sounds, soft, nontender, no hepatosplenomegaly Musculoskeletal Extremities: extremities normal to inspection; no cyanosis and no clubbing Skin + rash (Multiple areas of macular erythematous lesions with scaling skin on extremities and back) Neurologic moves all extremities and awake; no focal motor deficits Psychiatric A+Ox3, euthymic affect Lymphatic no lymphedema Discharge Data Allergies Allergy/AdvReac Type Severity Reaction Status Date / Time Penicillins Allergy Mild RASH Verified 05/09/20 07:18 morphine Allergy Unknown . Verified 05/09/20 07:18 tramadol [From Ultram] Allergy Rash Verified 05/09/20 07:18 Consultations 05/09/20 08:01 ED Decision to Admit Stat 05/09/20 16:16 Consult Cardiology Routine Ordered Studies 05/09/20 06:44 CT angio chest PE protocol Stat Hospital Course (1) SVT (supraventricular tachycardia): Presented with SVT in the 160s and received adenosine 6 mg which converted her sinus tachycardia Had mild chest pain associated with it which resolved when the SVT resolved. Troponin negative and with nonspecific ST/T wave changes on ECG May be related to recent chronic prednisone use in the last few months She was in a sinus tachycardia and is hypertensive after cardioversion, with peripheral edema, but no evidence of pulmonary edema or CHF on chest imaging CT angiogram of the chest negative for PE ECHO normal Started on metoprolol 50mg po bid and had improvement in her rates to the 70-80s in sinus the rest of the hospitalization -Serial troponin given the chest pain was performed and negative x 3 -She is weaning down off of prednisone already with dermatology-we will continue this process which hopefully will help her overall condition -Doubt that azathioprine nor any of her other supplements that she is taking is causing SVT -Follow BMP -Cardiology consultation appreciated -plan to f/u with Cardio as outpt for stress test -instructed on vagal maneuvers if recurs -advised no caffeine (2) Obesity: BMI 41.6 -Likely exacerbated by prednisone use - hemoglobin A1c checked given chronic prednisone use and elevated as below -Needs weight loss-counseled on this (3) Hypothyroidism: TSH here is normal -Continue home levothyroxine dose (4) Hypertension: Blood pressures were quite elevated here initially as she not taken her losartan on admission -improved with losartan and adding metoprolol -follow as outpt and at home -lasix prn edema -consider adding on once daily HCTZ with PCP if BPs remain elevated (5) Bullous pemphigoid: Continue home azathioprine 100 mg daily and prednisone 10 mg every other day until gone in the next 2 weeks -Follows with dermatology as an outpatient (6) Leukocytosis: WBC count is 13 which is likely secondary to prednisone use (7) Diabetes mellitus type 2 in obese: HgbA1C checked here due to hyperglycemia and obesity, chronic prednisone use A1C 7.2% consistent with new DMII Pt wants to wean off prednisone, work on dietar changes, exercise, and weight loss and will f/u with PCP Declines to start metformin at this time received education from AUDREYE (8) DVT prophylaxis: Lovenox SQ Disposition-stable for dc to home Total Time Total Time Spent Total Time Spent (In Minutes): >30 min Total Time Includes: Examination of the Patient, Discharge Planning and Medication Reconciliation Discharge Plan Discharge Items Patient Disposition: Home - Self-Care Reason For Visit: SVT Discharge Diagnosis: Supraventricular tachycardia (SVT) Condition on Discharge: Good Activity: Resume your previous activity Non-emergency contact: Primary Care Provider and Plaster Whittler Call non-emergency contact if: you have any medication questions and your symptoms worsen Follow-up/Referrals: Juan Jose Pizano MD [Physician] - (Please follow up within 1-[address] Pizano's office should be scheduling you a stress test as well. ) Juan Jose Erazo MD [Primary Care Provider] - (Please follow up within 1-2 weeks. ) Diet: Carb Consistent or DM2 and Heart Healthy Addtl Attending Provider Instructions: You were admitted with a rapid heart beat called supraventricular tachycardia. This was resolved by giving you a medication called adenosine. There's no way to know for certain what caused this to happen, but it may have been induced by prednisone use along with caffeine intake. You were started on a medication called metoprolol to slow down your heart rate and you should continue this after discharge. If you develop the rapid heart beat again, try bearing down like you're having a bowel movement, or you can put your face into a large bowl of ice water to try to bring your heart rate down. Please follow up with Dr. Pizano of Cardiology and he would like to arrange for a stress test because of the chest pain that you had. You were also found to have a new diagnosis of Diabetes mellitus type 2 based on your blood work. This may have developed since taking prednisone in the setting of your propensity in your family history to get diabetes as well as being overweight. As per your wishes to avoid taking a medication for this, you won't be prescribed medication at this time. You are tapering off of your prednisone which should help. You should also avoid sugary sweets and complex carbohydrates such as pastas, breads, and starchy vegetables like peas and corn. Dr. Erazo can follow up on the diabetes with you. Pending Studies at Discharge: No Stand-Alone Forms: My [facility] Medications and DC Order Prescriptions: New metoprolol tartrate 50 mg Tablet 50 mg PO BID Qty: 60 RF: 0 Continued azathioprine 50 mg tablet 100 mg PO DAILY Qty: 60 RF: 1 multivitamin Tablet 1 tab PO QDL RF: 0 losartan 50 mg tablet 50 mg PO QAM RF: 0 levothyroxine 75 mcg tablet 75 mcg PO QAM RF: 0 garlic 1,000 mg Capsule 1,000 mg PO QDL RF: 0 calcium carbonate [Calcium 600] 600 mg calcium (1,500 mg) Tablet 600 mg PO QDL RF: 0 bilberry 100 mg Capsule 100 mg PO BID RF: 0 lysine 500 mg Tablet 500 mg PO QAM RF: 0 cinnamon bark [Cinnamon] 500 mg Capsule 1,000 mg PO BID RF: 0 potassium gluconate 595 mg (99 mg) Tablet 595 mg PO QAM RF: 0 Ocuvite Adult 50 Plus 250-5-1 mg Capsule 1 cap PO QAM RF: 0 [place] 3-6-9 1,200 mg Capsule 1 cap PO TUTHSA RF: 0 aspirin 325 mg Tablet 650 mg PO UD RF: 0 aspirin 325 mg Tablet 325 mg PO QAM RF: 0 magnesium citrate 100 mg Tablet 100 mg PO BID RF: 0 prednisone 10 mg tablet 10 mg PO Q2D RF: 0 furosemide 40 mg tablet 40 mg PO DAILY PRN (Reason: Edema) RF: 0 Discharge Orders: Discharge Order (Routine); Ordered 05/10/20 Ordered By: Cindy Fox/Other Patient Handouts: Managing Type 2 Diabetes, Diabetes: Meal Planning, A1C Admission Data Admit Date/Time: 05/09/20 09:57 Attending Provider: Cindy Chavez Admit Provider: Cindy Chavez Primary Care Provider: Juan Jose Erazo Other Providers: Cindy Chavez ; Panchito Andrea Coding Level of Care Code 46606 OBS Care - Discharge Diagnoses SVT (supraventricular tachycardia) I47.1 Obesity E66.9 Hypothyroidism E03.9 Hypertension I10 Bullous pemphigoid L12.0 Leukocytosis D72.829 Diabetes mellitus type 2 in obese E11.69; E66.9 DVT prophylaxis Z29.9
--- NOTE | 2020-05-10 13:00 | Cardiology Progress Note ---
Date of Service May 10, 2020 Assessment & Plan (1) SVT (supraventricular tachycardia): -this represents her only episode of an SVT -workup has been negative -continue metoprolol tartrate at 50 mg b.i.d. -may use an additional dose of metoprolol if necessary for SVT. -she was instructed on the use of vagal maneuvers. (2) Chest discomfort: -no further chest discomfort -3 troponins are undetectable despite 2 hours of her SVT -may consider an outpatient stress test (3) Hypertension: -adequate control on current regimen. (4) Hypothyroidism: -TSH was normal. (5) Bullous pemphigoid: -changing from prednisone to azathioprine. Admission and Anticipated Discharge Date Admission Date: May 09, 2020 Subjective The patient is resting comfortably in the bedside chair without complaints of chest pain or dyspnea. No further recurrence of her SVT. Physical Exam Physical Exam: In general this is a morbidly obese white female no acute distress. HEENT exam is negative. Neck is supple with full carotid upstrokes. No carotid bruits. Jugular venous pressure is flat at 90. There is no thyromegaly. Cardiovascular exam reveals a regular rhythm with distant heart sounds. No obvious murmurs. No S3. Lungs are clear without rales, rhonchi, or wheezes. Abdomen is obese without bruits. Extremities reveal intact radial pulses bilaterally. There is trace pretibial edema noted. Results & Data ([facility]) Vital Signs (Past 12 Hours) Vital Signs Temp Pulse Pulse Resp BP BP Pulse Ox 05/10/20 12:20 37.0 C 98 H 18 145/71 H 96 05/10/20 07:32 90 05/10/20 07:24 37.0 C 86 18 147/89 H 96 05/10/20 03:56 36.5 C 96 H 19 129/70 94 Diagnostic Findings rn lvn is benign. No further SVT. PG Care Time/CCT Total # of Minutes Spent Total Time Spent with Patient: Total time spent is greater than 50% in coordination of care (as documented) at patient's floor/unit and/or counseling patient: Coding Level of Care Code 18336 Subseq Hosp Care Lvl 3 Diagnoses SVT (supraventricular tachycardia) I47.1 Chest discomfort R07.89 Hypertension I10 Hypothyroidism E03.9 Bullous pemphigoid L12.0
== END 2020-05-10 13:53 | disposition home or self-care (01) ==
LOC: 2S 06:15 → ED 06:15 → 2S 14:00